=== PATIENT | male | born 1955 | race Caucasian/White ===

== ENCOUNTER 2019-07-18 12:15 | Emergency (ER) | payer MEDICARE, BC ==
[2019-07-18] MEDS ORDERED: Sodium Chloride 0.9% 10 ML Syringe FLUSH PRN (12:34)
[2019-07-18] MEDS ORDERED: HYDROmorphone 0.5 MG/0.5 ML Syringe IVPUSH ONE (12:37)
[2019-07-18] MEDS ORDERED: cefTRIAXone 2 GM in Sodium Chloride 0.9% 100 ML IV ONE (12:45)
--- NOTE | 2019-07-18 13:48 | EDM.PDOC ---
ED HPI GENERAL MEDICAL PROBLEM - General Chief Complaint: Upper Extremity Injury/Pain Stated Complaint: LT THUMB SWOLLEN AND BLACK Time Seen by Provider: 07/18/19 12:26 Source of Information: Reports: Patient, Family History Limitations: Reports: No Limitations - History of Present Illness INITIAL COMMENTS - FREE TEXT/NARRATIVE: The patient presents with left thumb swelling. He says his all started the day after Thanksgiving. He was scraping ice off of his windshield and got some ice under his nail. He has some bleeding under the nail and some pain. He also had some discoloration to the tip of his thumb. The pain, swelling and discoloration has gotten worse. He went to an ER in [place] on the [place] side of the [facility] and they tried to do some trepination to the nail to relive some pressure. That did not help. The past few days he developed a fever and red streaking up his left arm. He also developed a blood blister proximal to the tip of the thumb on the dorsal aspect. He has no medical problems. He is right handed and his tetanus is up to date. It was 4 years ago. Onset: Gradual Duration: Week(s): Location: Reports: Upper Extremity, Left (thumb) Quality: Reports: Sharp Severity: Moderate Improves with: Reports: Immobilization Worsens with: Reports: Movement Context: Reports: Trauma (Possibly with scraping windows) Associated Symptoms: Reports: Fever/Chills. Denies: Chest Pain, Cough, Headaches, Nausea/Vomiting, Shortness of Breath Left Finger-Thumb Pain Score (Numeric/FACES): 6 - Related Data Allergies Allergy/AdvReac Type Severity Reaction Status Date / Time No Known Allergies Allergy Verified 07/18/19 12:31 Home Meds: Home Meds Hydrocodone/Acetaminophen [Homer 5-325 Tablet] 1 each PO Q6HR PRN 07/18/19 [ History] amLODIPine [Norvasc] 0 mg PO DAILY 07/18/19 [History] Past Medical History HEENT History: Reports: Impaired Vision Cardiovascular History: Reports: High Cholesterol, Hypertension Respiratory History: Reports: None Gastrointestinal History: Reports: None Genitourinary History: Reports: BPH Musculoskeletal History: Reports: None Neurological History: Reports: None Psychiatric History: Reports: None Endocrine/Metabolic History: Reports: None Hematologic History: Reports: None Immunologic History: Reports: None Oncologic (Cancer) History: Reports: None Dermatologic History: Reports: None - Infectious Disease History Infectious Disease History: Reports: None Social & Family History - Tobacco Use Smoking Status *Q: Current Every Day Smoker Years of Tobacco use: 14 Packs/Tins Daily: 0.5 - Caffeine Use Caffeine Use: Reports: Coffee - Recreational Drug Use Recreational Drug Use: No Review of Systems - Review of Systems Review Of Systems: See Below Constitutional: Reports: Fever Eyes: Reports: No Symptoms Ears: Reports: No Symptoms Nose: Reports: No Symptoms Mouth/Throat: Reports: No Symptoms Respiratory: Reports: No Symptoms Cardiovascular: Reports: No Symptoms GI/Abdominal: Reports: No Symptoms Genitourinary: Reports: No Symptoms Musculoskeletal: Reports: Other (Left thumb swelling and discoloration) ED EXAM, GENERAL - Physical Exam Exam: See Below Exam Limited By: No Limitations General Appearance: Alert, No Apparent Distress Ears: Normal External Exam Nose: Normal Inspection Head: Atraumatic, Normocephalic Neck: Normal Inspection Respiratory/Chest: No Respiratory Distress, Lungs Clear, Normal Breath Sounds Cardiovascular: Regular Rate, Rhythm, No Edema, No Murmur GI/Abdominal: Soft, Non-Tender, No Organomegaly, No Mass Back Exam: Normal Inspection Extremities: Other (Left thumb has edema and the tip is pale with black and blue discoloration that extends to the 1st nuckle. With a blood blister on the dorsal aspect of the thumb. Decreased sensation to the tip of the thumb. Erythema to the base of the thumb extending up his arm.) Course - Vital Signs Last Recorded V/S: Last Vital Signs Temp 99 F 07/18/19 12:25 Pulse 118 H 07/18/19 12:25 Resp 20 07/18/19 12:25 BP 144/97 H 07/18/19 12:25 Pulse Ox 94 L 07/18/19 12:25 - Orders/Labs/Meds Orders: Active Orders 24 hr Category Date Time Status Cardiac Monitoring [RC] . DIRECTED Care 07/18/19 12:34 Active Peripheral IV Care [RC] . DIRECTED Care 07/18/19 12:34 Active Fingers Thumb Lt FA [CR] Stat Exams 07/18/19 12:37 Taken CULTURE BLOOD [BC] Stat Lab 07/18/19 13:03 Received CULTURE BLOOD [BC] Stat Lab 07/18/19 13:11 Received Sodium Chloride 0.9% [Saline Flush] Med 07/18/19 12:34 Active 10 ml FLUSH ASDIRECTED PRN Blood Culture x2 Reflex Set [OM.PC] Stat Oth 07/18/19 12:35 Ordered Peripheral IV Insertion Adult [OM.PC] Stat Oth 07/18/19 12:34 Ordered Medication Orders Sodium Chloride (Saline Flush) 10 ml FLUSH ASDIRECTED PRN PRN Reason: Keep Vein Open Last Admin: 07/18/19 12:53 Dose: 10 ml Labs: Laboratory Tests 07/18/19 07/18/19 Range/Units 13:03 13:03 WBC 15.26 H (4.23-9.07) K/mm3 RBC 4.45 L (4.63-6.08) M/mm3 Hgb 14.1 (13.7-17.5) gm/dl Hct 41.2 (40.1-51.0) % MCV 92.6 H (79.0-92.2) fl MCH 31.7 (25.7-32.2) pg MCHC 34.2 (32.2-35.5) g/dl RDW Std Deviation 42.1 (35.1-43.9) fL Plt Count 300 (163-337) K/mm3 MPV 9.7 (9.4-12.3) fl Neut % (Auto) 80.5 H (34.0-67.9) % Lymph % (Auto) 10.4 L (21.8-53.1) % [place] % (Auto) 8.1 (5.3-12.2) % Eos % (Auto) 0.5 L (0.8-7.0) Baso % (Auto) 0.3 (0.1-1.2) % Neut # (Auto) 12.30 H (1.78-5.38) K/mm3 Lymph # (Auto) 1.58 (1.32-3.57) K/mm3 [place] # (Auto) 1.24 H (0.30-0.82) K/mm3 Eos # (Auto) 0.07 (0.04-0.54) K/mm3 Baso # (Auto) 0.04 (0.01-0.08) K/mm3 Sodium 136 (136-145) mEq/L Potassium 3.4 L (3.5-5.1) mEq/L Chloride 100 (98-107) mEq/L Carbon Dioxide 27 (21-32) mEq/L Anion Gap 12.4 (5-15) BUN 18 (7-18) mg/dL Creatinine 1.2 (0.7-1.3) mg/dL Est Cr Clr Drug Dosing 47.40 mL/min Estimated GFR (MDRD) > 60 (>60) mL/min BUN/Creatinine Ratio 15.0 (14-18) Glucose 117 H (80-115) mg/dL Calcium 8.4 L (8.5-10.1) mg/dL Total Bilirubin 0.7 (0.2-1.0) mg/dL AST 13 L (15-37) U/L ALT 24 (16-63) U/L Alkaline Phosphatase 64 (46-116) U/L C-Reactive Protein 10.8 H* (<1.0) mg/dL Total Protein 7.2 (6.4-8.2) g/dl Albumin 3.2 L (3.4-5.0) g/dl Globulin 4.0 gm/dL Albumin/Globulin Ratio 0.8 L (1-2) Meds: Medications Generic Name Dose Route Start Last Admin Trade Name Freq PRN Reason Stop Dose Admin Sodium Chloride 10 ml 07/18/19 12:34 07/18/19 12:53 Saline Flush FLUSH 10 ml ASDIRECTED PRN Administration Keep Vein Open Discontinued Medications Generic Name Dose Route Start Last Admin Trade Name Freq PRN Reason Stop Dose Admin Hydromorphone HCl 0.5 mg 07/18/19 12:37 07/18/19 13:09 Dilaudid IVPUSH 07/18/19 12:38 0.5 mg ONETIME ONE Administration Ceftriaxone Sodium 2 gm/ 100 mls @ 200 mls/hr 07/18/19 12:45 07/18/19 13:12 Sodium Chloride IV 07/18/19 13:14 200 mls/hr ONETIME ONE Administration - Re-Assessments/Exams Free Text/Narrative Re-Assessment/Exam: 07/18/19 13:53 I ordered an IV saline lock, rocephin 2 grams IV, labs, blood cultures and an x- ray. The x-ray showed normal bone but there was swelling seen. His WBC is elevated at 15.26. His CRP is elevated at 10.8. I am worried he has a very serious infection to his thumb. I talked with Dr [facility] and he recommended I call the hand surgeon. I talked with Dr Arevalo and the ER doctor on duty and they accepted the patient. 07/18/19 14:01 He wants to go by private vehicle. 07/18/19 14:03 His temp is going up so I ordered tylenol with a sip of water. Departure - Departure Time of Disposition: 14:05 Disposition: DC/Tfer to Acute Hospital 02 Condition: Serious Clinical Impression: Cellulitis of left thumb Infected superficial injury of left thumb Qualifiers: Encounter type: initial encounter Qualified Code(s): S60.932A - Unspecified superficial injury of left thumb, initial encounter; L08.9 - Local infection of the skin and subcutaneous tissue, unspecified - Discharge Information Referrals: PCP,None [Primary Care Provider] - Forms: ED Department Discharge Sepsis Event Note - Evaluation Sepsis Screening Result: Possible Sepsis Risk - Focused Exam Vital Signs: Vital Signs Temp Pulse Resp BP Pulse Ox 07/18/19 12:25 99 F 118 H 20 144/97 H 94 L Date Exam was Performed: 07/18/19 Time Exam was Performed: 14:01 - My Orders Last 24 Hours: My Active Orders 07/18/19 12:34 Cardiac Monitoring [RC] . DIRECTED Peripheral IV Care [RC] . DIRECTED Sodium Chloride 0.9% [Saline Flush] 10 ml FLUSH ASDIRECTED PRN Peripheral IV Insertion Adult [OM.PC] Stat 07/18/19 12:35 Blood Culture x2 Reflex Set [OM.PC] Stat 07/18/19 12:37 Fingers Thumb Lt FA [CR] Stat 07/18/19 13:03 CULTURE BLOOD [BC] Stat 07/18/19 13:11 CULTURE BLOOD [BC] Stat - Assessment/Plan Last 24 Hours: My Active Orders 07/18/19 12:34 Cardiac Monitoring [RC] . DIRECTED Peripheral IV Care [RC] . DIRECTED Sodium Chloride 0.9% [Saline Flush] 10 ml FLUSH ASDIRECTED PRN Peripheral IV Insertion Adult [OM.PC] Stat 07/18/19 12:35 Blood Culture x2 Reflex Set [OM.PC] Stat 07/18/19 12:37 Fingers Thumb Lt FA [CR] Stat 07/18/19 13:03 CULTURE BLOOD [BC] Stat 07/18/19 13:11 CULTURE BLOOD [BC] Stat
[2019-07-18] MEDS ORDERED: Ketorolac 30 MG/ML SDV IVPUSH ONE (14:02)
--- NOTE | 2019-07-18 14:02 | CR ---
Left thumb: Four views of the left thumb were obtained. Comparison: No previous thumb study. Diffuse soft tissue swelling is seen. No soft tissue air is identified. No underlying bony abnormality is seen. Impression: 1. Soft tissue swelling. Diagnostic code #3 This report was dictated in [place] Standard Time
[2019-07-18] MEDS ORDERED: Acetaminophen 325 MG Tab PO ONE (14:03)
[2019-07-18] MEDS ORDERED: Acetaminophen 325 MG Tab ONE (14:05)
[2019-07-18] MEDS ORDERED: Lactated Ringers 1,000 ML IV SCH (14:15)
[2019-07-18] MEDS ORDERED: HYDROmorphone 1 MG/ML Syringe IVPUSH ONE (14:33)
== END 2019-07-18 15:00 ==
LOC: JD.ED 12:15
DX: S60.932A Unspecified superficial injury of left thumb, initial encounter (principal); L03.012 Cellulitis of left finger; I10 Essential (primary) hypertension; E78.00 Pure hypercholesterolemia, unspecified; F17.210 Nicotine dependence, cigarettes, uncomplicated; Z79.899 Other long term (current) drug therapy; W22.8XXA Striking against or struck by other objects, initial encounter
CPT/HCPCS: 36415; 73140; 80053; 85025; 86140; 87040; 96365; 96375; 96376; 99284; A9270; J0696; J1170; J7050; J7120